=== PATIENT | male | born 1970 | race Caucasian/White ===

== ENCOUNTER → 2020-12-09 | Outpatient (CLI) | payer OTHER | END | disposition home or self-care (01) | LOC: US 08:14 | PROVIDERS: ATTEND Internal Medicine | DX: R42 Dizziness and giddiness (principal); E04.2 Nontoxic multinodular goiter ==

== ENCOUNTER → 2021-01-13 | Outpatient (CLI) | payer OTHER | END | disposition home or self-care (01) | LOC: CARD 09:30 | PROVIDERS: ATTEND Internal Medicine | DX: R00.0 Tachycardia, unspecified (principal); R06.02 Shortness of breath ==

== ENCOUNTER → 2021-07-18 | Outpatient (CLI) | payer OTHER | END | disposition home or self-care (01) | LOC: US 09:00 | PROVIDERS: ATTEND Internal Medicine | DX: N20.0 Calculus of kidney (principal); R94.4 Abnormal results of kidney function studies; N32.89 Other specified disorders of bladder ==

== ENCOUNTER → 2021-11-07 | Outpatient (CLI) | payer OTHER | END | disposition home or self-care (01) | LOC: US 10:00 | PROVIDERS: ATTEND Internal Medicine | DX: M76.891 Other specified enthesopathies of right lower limb, excluding foot (principal); M25.561 Pain in right knee ==